=== PATIENT | male | born 1990 | race Caucasian/White ===

== ENCOUNTER → 2019-07-17 | Outpatient (CLI) | payer BC ==
--- NOTE | 2019-07-17 15:17 | REP ---
Right hand series: Four views. History: Pain. After injury. Comparison right hand radiographs are from November 13, 2014. Findings: Four views of the right hand demonstrate a transversely oriented fracture through the proximal end of the fifth metacarpal with associated swelling. Fracture is not displaced. No other fractures seen. Impression: Proximal fifth metacarpal fracture nondisplaced. Electronically Signed by Hardy Valencia MD 07/17/2019 03:09 P
== END ==
LOC: M WUC 13:52
PROVIDERS: ATTEND Physician Assistant
DX: M79.641 Pain in right hand (principal)